=== PATIENT | male | born 1970 | race Caucasian/White ===

== ENCOUNTER 2020-02-15 20:54 | Emergency (ER) | payer BC, MEDICAID ==
[2020-02-15 21:08] VITALS: BP 147/72; PULSE 94
--- NOTE | 2020-02-15 22:02 | EDM.PDOC ---
ED HPI GENERAL MEDICAL PROBLEM - General Chief Complaint: Respiratory Problem Stated Complaint: COUGH,S.O.B. Time Seen by Provider: 02/15/20 21:23 Source of Information: Reports: Patient History Limitations: Reports: No Limitations - History of Present Illness INITIAL COMMENTS - FREE TEXT/NARRATIVE: Joaquin is a 49-year-old male presenting to the ED for evaluation of increasing shortness of breath, intermittent fever, body aches, headache, and mild nausea. The patient symptoms started about a week ago and have waxed and waned. Although he has had shortness of breath, he does not have any productive cough. He has had intermittent dry coughing. He states he just generally does not feel well and has significant fatigue. He does report having loss of taste today. Chest Pain Score (Numeric/FACES): 6 - Related Data Allergies Allergy/AdvReac Type Severity Reaction Status Date / Time onion Allergy Anaphylactic Verified 02/15/20 21:13 Shock peanut Allergy Anaphylactic Verified 02/15/20 21:13 Shock Home Meds: Home Meds Benzonatate [Tessalon Perle] 200 mg PO TID #15 capsule 02/15/20 [Rx] Past Medical History HEENT History: Reports: Cataract, Impaired Vision - Past Surgical History GI Surgical History: Reports: Hernia, Abdominal Social & Family History - Family History Family Medical History: No Pertinent Family History - Caffeine Use Caffeine Use: Reports: None - Recreational Drug Use Recreational Drug Use: No ED ROS GENERAL - Review of Systems Review Of Systems: See Below Constitutional: Reports: Fever, Chills, Malaise, Fatigue, Decreased Appetite HEENT: Reports: Other (Loss of taste) Respiratory: Reports: Shortness of Breath, Cough. Denies: Sputum Cardiovascular: Reports: No Symptoms Endocrine: Reports: Fatigue GI/Abdominal: Reports: Nausea : Reports: No Symptoms Musculoskeletal: Reports: Muscle Pain (Generalized body aches) Skin: Reports: No Symptoms Neurological: Reports: Headache (Mild) Psychiatric: Reports: No Symptoms Hematologic/Lymphatic: Reports: No Symptoms Immunologic: Reports: No Symptoms ED EXAM, GENERAL - Physical Exam Exam: See Below Exam Limited By: No Limitations General Appearance: Alert, WD/WN, No Apparent Distress Eye Exam: Bilateral Eye: EOMI, PERRL Nose: Normal Inspection, Normal Mucosa Throat/Mouth: Normal Inspection, Normal Lips, Normal Teeth, Normal Gums, Normal Oropharynx, Normal Voice, No Airway Compromise Head: Atraumatic, Normocephalic Neck: Normal Inspection, Supple, Non-Tender, Full Range of Motion Respiratory/Chest: No Respiratory Distress, Lungs Clear, Normal Breath Sounds, No Accessory Muscle Use, Chest Non-Tender Cardiovascular: Normal Peripheral Pulses, Regular Rate, Rhythm, No Edema, No Gallop, No JVD, No Murmur, No Rub GI/Abdominal: Normal Bowel Sounds, Soft, Non-Tender, No Organomegaly, No Distention, No Abnormal Bruit, No Mass (Male) Exam: Deferred Rectal (Males) Exam: Deferred Back Exam: Normal Inspection, Full Range of Motion, NT Extremities: Normal Inspection, Normal Range of Motion, Non-Tender, Normal Capillary Refill, No Pedal Edema Neurological: Alert, Oriented, Normal Cognition, Normal Gait, Normal Reflexes, No Motor/Sensory Deficits Psychiatric: Normal Affect, Normal Mood Skin Exam: Warm, Dry, Intact, Normal Color, No Rash Lymphatic: No Adenopathy Course - Vital Signs Last Recorded V/S: Last Vital Signs Temp 36.8 C 02/15/20 21:10 Pulse 94 02/15/20 21:10 Resp 16 02/15/20 21:10 BP 147/72 H 02/15/20 21:10 Pulse Ox 92 L 02/15/20 21:10 - Orders/Labs/Meds Orders: Active Orders 24 hr Category Date Time Status Chest 1V Frontal [CR] Stat Exams 02/15/20 22:11 Ordered Labs: Laboratory Tests 02/15/20 Range/Units 21:44 SARS-CoV-2 RNA (YOSEF) Positive H (NEGATIVE) - Re-Assessments/Exams Free Text/Narrative Re-Assessment/Exam: Joaquin is a 49-year-old male presenting to the ED with complaint of headache, body aches, intermittent fever, shortness of breath, cough, and mild nausea. His symptoms started a week ago and again have been waxing and waning. He comes in today because of increasing shortness of breath. Again he has had a nonproductive cough. His fever has been as high as 101 F. He does report generalized myalgias. Initially had ordered blood work including a CBC, comprehensive metabolic profile, CRP, D-dimer, lactic acid, procalcitonin, and ferritin. Patient declined any blood draw, but rather would like to just have the Covid nasal swab. This was ordered. Departure - Departure Time of Disposition: 22:40 Disposition: Home, Self-Care 01 Condition: Good Clinical Impression: COVID-19 - Discharge Information *PRESCRIPTION DRUG MONITORING PROGRAM REVIEWED*: Not Applicable *COPY OF PRESCRIPTION DRUG MONITORING REPORT IN PATIENT GABRIELLA: Not Applicable Instructions: COVID-19, COVID-19 Frequently Asked Questions, Prevent the Spread of COVID-19 if You Are Sick - [facility] Referrals: PCP,None [Primary Care Provider] - Forms: ED Department Discharge Care Plan Goals: We will start you out on Tessalon Perles 200 mg 3 times a day for your cough. This is the strongest of the oral medications to control cough. I have a prescription for the LawBite machine for 15 tablets with an additional prescription to fill at your pharmacy for another 15 tablets. Please return to the ED should you develop any significant change in your symptoms including shortness of breath, chest pain, ongoing nausea with the inability to keep down fluids, increased fatigue, or worsening headache. You should stay home and quarantine otherwise. Please isolate from the rest of the family as to not spread it throughout your family. I have also enclosed a work note excusing you from work until 02/26/2020. Sepsis Event Note (ED) - Evaluation Sepsis Screening Result: Possible Sepsis Risk - Focused Exam Vital Signs: Vital Signs Temp Pulse Resp BP Pulse Ox 02/15/20 21:10 36.8 C 94 16 147/72 H 92 L 02/15/20 21:06 36.8 C 94 16 147/72 H 92 L - Problem List & Annotations (1) COVID-19 SNOMED Code(s): 038804008 Code(s): U07.1 - COVID-19 Status: Acute Priority: High Current Visit: Yes - Problem List Review Problem List Initiated/Reviewed/Updated: Yes - My Orders Last 24 Hours: My Active Orders 02/15/20 22:11 Chest 1V Frontal [CR] Stat - Assessment/Plan Last 24 Hours: My Active Orders 02/15/20 22:11 Chest 1V Frontal [CR] Stat
--- NOTE | 2020-02-16 09:28 | CR ---
CHEST: Portable 02/15/2020 at 1033 CLINICAL HISTORY:Dyspnea COMPARISON:2006 FINDINGS: Heart size and pulmonary vascular are normal. There is some minimal patchy density in the left perihilar region as well as the right infrahilar region. There is some generalized increase in lung markings in the lung chu. Heart size and pulmonary vascularity are normal. There are no effusions IMPRESSION: Faint patchiness in the left perihilar and right infrahilar region. Some of this may be chronic but, early pneumonia or pneumonitis is not excluded. If clinical symptomatology persists or worsens a repeat exam is recommended.
== END 2020-02-15 23:04 | disposition home or self-care (01) ==
LOC: JP.ED 20:54
DX: U07.1 COVID-19 (principal); Z91.010 Allergy to peanuts; Z91.018 Allergy to other foods
CPT/HCPCS: 71045; 71045-26; 99283; 99285-25; U0002

== ENCOUNTER 2020-09-03 16:54 | Emergency (ER) | payer SELFPAY ==
[2020-09-03 17:07] VITALS: BP 127/74; PULSE 69
--- NOTE | 2020-09-03 17:52 | EDM.PDOC ---
ED HPI GENERAL MEDICAL PROBLEM - General Chief Complaint: Bite:Animal, Insect Stated Complaint: POSSIBLE LYMES Time Seen by Provider: 09/03/20 17:35 Source of Information: Reports: Patient History Limitations: Reports: No Limitations - History of Present Illness INITIAL COMMENTS - FREE TEXT/NARRATIVE: 49-year-old male pulled a tick off his right anterior knee 4 days ago, and since that time has had increased erythema, swelling and pain of the right knee. No fevers or chills. It is becoming more difficult to bear weight. He is adamant that he does not want to have any needles. No nausea or vomiting. Onset: Gradual Duration: Day(s): (4 days) Location: Reports: Lower Extremity, Right Associated Symptoms: Denies: Fever/Chills, Loss of Appetite, Malaise, Nausea/Vomiting, Weakness - Related Data Allergies Allergy/AdvReac Type Severity Reaction Status Date / Time onion Allergy Anaphylactic Verified 09/03/20 17:09 Shock peanut Allergy Anaphylactic Verified 09/03/20 17:09 Shock Home Meds: Home Meds NK [No Known Home Meds] 09/03/20 [History] Past Medical History HEENT History: Reports: Cataract, Impaired Vision - Past Surgical History GI Surgical History: Reports: Hernia, Abdominal Social & Family History - Family History Family Medical History: No Pertinent Family History - Caffeine Use Caffeine Use: Reports: None ED ROS GENERAL - Review of Systems Review Of Systems: See Below Constitutional: Denies: Fever, Chills HEENT: Reports: No Symptoms Respiratory: Reports: No Symptoms GI/Abdominal: Denies: Nausea, Vomiting Skin: Reports: Erythema (Significant erythema has developed over the anterior aspect of the right knee, some underlying bruising as well) Neurological: Reports: No Symptoms. Denies: Headache Psychiatric: Reports: No Symptoms ED EXAM, ANIMAL BITE - Physical Exam Exam: See Below Exam Limited By: No Limitations General Appearance: Alert, No Apparent Distress Head: Atraumatic Neck: Supple, Non-Tender Respiratory/Chest: Lungs Clear Extremities: Other (Exam is otherwise limited to the lower extremities. The right knee has significant erythema and underlying bruising with slight swelling over the entire anterior aspect of the knee radiating from a small bite kingsley over the anterior tibial plateau area) Neurological: Alert, Oriented Course - Vital Signs Last Recorded V/S: Last Vital Signs Temp 96.8 F L 09/03/20 17:14 Pulse 69 09/03/20 17:14 Resp 18 09/03/20 17:14 BP 127/74 09/03/20 17:14 Pulse Ox 100 09/03/20 17:14 - Re-Assessments/Exams Free Text/Narrative Re-Assessment/Exam: 09/03/20 17:51 Patient was given 10 days of Augmentin 875 mg to take twice daily, and 10 hydrocodone for extra pain control. He should elevate the leg, mild moist heat over the knee will help, and increase activity as tolerated. He should return if he is worsening despite treatment or vomiting medication. Departure - Departure Time of Disposition: 18:20 Disposition: Home, Self-Care 01 Clinical Impression: Cellulitis Qualifiers: Site of cellulitis: extremity Site of cellulitis of extremity: lower extremity Laterality: right Qualified Code(s): L03.115 - Cellulitis of right lower limb - Discharge Information Instructions: Cellulitis, Adult Referrals: PCP,None [Primary Care Provider] - Forms: ED Department Discharge Care Plan Goals: 1 dose of anabiotic with food twice daily until gone, continue with ibuprofen, and add stronger pain medication if needed for the first couple of days. Return if worsening despite taking the antibiotic, or vomiting the medication or other concerns. Gentle moist heat over the knee will be helpful if on the antibiotic. Increase activity as tolerated. Sepsis Event Note (ED) - Evaluation Sepsis Screening Result: No Definite Risk - Focused Exam Vital Signs: Vital Signs Temp Pulse Resp BP Pulse Ox 09/03/20 17:14 96.8 F L 69 18 127/74 100 09/03/20 17:06 96.8 F L 69 18 127/74 100
== END 2020-09-03 18:21 | disposition home or self-care (01) ==
LOC: JP.ED 16:54
DX: L03.115 Cellulitis of right lower limb (principal); Z91.018 Allergy to other foods; Z91.010 Allergy to peanuts
CPT/HCPCS: 99283